=== PATIENT | male | born 1970 | race Caucasian/White ===

== ENCOUNTER 2024-03-03 08:02 | Emergency (ER) | payer OTHER, SELFPAY ==
--- NOTE | ~2024-03-03 | US_ITS ---
EXAMINATION: US venous doppler [facility] DATE: 03/03/2024 08:40 INDICATION: Left lower limb pain. TECHNIQUE: Grayscale ultrasound images without and with compression and Doppler ultrasound images of the left lower extremity veins were obtained. COMPARISON: None. FINDINGS: The visualized portions of left common femoral vein, profunda (deep) femoral vein, and greater saphen ous vein outflow are patent. There is deep vein thrombosis involving left femoral, popliteal, posteri or tibial, peroneal, and gastrocnemius veins. IMPRESSION: 1. Deep vein thrombosis involving left femoral, popliteal, posterior tibial, peroneal, and gastrocne mius veins. Reviewed, dictated and finalized at location A. IMPRESSION: 1. Deep vein thrombosis involving left femoral, popliteal, posterior tibial, p eroneal, and gastrocnemius veins.
[2024-03-03 08:08] VITALS: BP 142/105; PULSE 78; RESP 20; TEMP 36.7; O2SAT 96
--- NOTE | 2024-03-03 08:22 | ED.EXTPRO ---
HPI - Extremity Problem General Chief complaint: Extremity Problem,Nontraumatic Stated complaint: elevated D Dimer, wants US of L lower leg Time Seen by Provider: 03/03/24 08:15 Source: patient Mode of arrival: ambulatory Limitations: no limitations History of Present Illness HPI Narrative: Patient presents with left lower extremity calf pain. He had had his knee wrapped while he was working. He has a history of a torn ACL and cartilage damage and arthritis in this extremity that was operated on in October 2022 through [facility]. He did present to [facility] yesterday for this complaint of numbness. No history of DVT. He denies any shortness of breath or chest pain. Did have a workup at [facility] that would was notable for an elevated D-dimer and her ultrasound on the performed. They administered a shot of Lovenox and was advised to follow up for the ultrasound study. Related Data Allergies Allergy/AdvReac Type Severity Reaction Status Date / Time No Known Allergies Allergy Mild Verified 03/03/24 08:12 [facility] Past Medical History Medical History Arthritis Left knee Torn ACL Left Surgical History Surgical History H/O left knee surgery October 2022, [place] Social History Social History Smoking status: Never smoker Alcohol intake: current Exam Narrative: GENERAL: Well-appearing, well-nourished, and in no acute distress. HEAD: Normocephalic, atraumatic. EYES: Non injected, non icteric ENT: Nares clear, no rhinorrhea or epistaxis. NECK: Supple. CHEST: Speaking in full sentences. No respiratory distress. HEART: Regular rate and rhythm. . ABDOMEN: Soft, nondistended. EXTREMITIES: Normal range of motion. Mild swelling in left lower extremity, no pitting edema. Five of 5 strength with left ankle dorsiflexion plantar flexion. SKIN: Warm, dry, no rash. NEURO: No focal deficits. Alert and oriented x3. Sensation intact to gross touch throughout left leg. PSYCH: Normal mood and affect. Course Vital Signs Vital signs: Vital Signs Temperature 98.1 F 03/03/24 08:08 Pulse Rate 78 03/03/24 08:08 Respiratory Rate 20 03/03/24 08:08 Blood Pressure 142/105 H 03/03/24 08:08 Pulse Oximetry 96 03/03/24 08:08 Oxygen Delivery Room Air 03/03/24 08:08 Temperature 98.1 F 03/03/24 08:08 Pulse Rate 78 03/03/24 08:08 Respiratory Rate 20 03/03/24 08:08 Blood Pressure 142/105 H 03/03/24 08:08 Pulse Oximetry 96 03/03/24 08:08 Oxygen Delivery Room Air 03/03/24 08:08 MDM - Extremity (Nontraumatic) MDM Narrative Medical decision making narrative: Patient presents requesting ultrasound to rule out DVT in left lower extremity. He presented to [facility] for concerns of swelling and numbness in the extremity yesterday and had a workup that included an elevated D-dimer however ultrasound was unable to be performed at that time. He received a shot of Lovenox and was advised to follow-up which is what he was doing today. In the emergency department he is afebrile with vital signs notable for an elevated diastolic blood pressure. Patient is found to have DVT throughout many vessels of lower extremity. Normal renal function. He had been prescribed Eliquis empirically from [facility] and has the written prescription with him. We have compounds for rivaroxaban so this is a medication that is initially given and he is prescribed a 30 day course and provided the coupon. Advised he can take either advised he is to avoid NSAIDs. He is given strict ED return precautions. Patient has primary care physician for follow-up and refills. Discharged home in stable condition. Differential Diagnosis Differential diagnosis: Likely superficial thrombophlebitis and deep vein thrombosis of lower extremity Lab Data Attestation: I reviewed the patient's lab results. 03/03/24 09:11 03/03/24 09:1
[2024-03-03 09:16] LABS: Basophils Absolute Auto 0.1 K/mm3 (0.0-0.1); Basophils Percent Auto 0.6 % (0.2-1.2); Eosinophils Absolute Auto 0.3 K/mm3 (0-0.3); Eosinophils Percent Auto 3.7 % (0-4.4); Hematocrit 43.5 % (42.0-52.0); Hemoglobin 15.4 g/dL (14.0-18.0); Immature Granulocyte Absolute 0.03 K/mm3 (0.00-0.031); Immature Granulocyte Percent A 0.4 % (0-0.5); Lymphocytes Absolute Auto 1.23 K/mm3 (0.9-3.2); Lymphocytes Percent Auto 15.2 % (18.3-44.2); Mean Corpuscular HGB Conc 35.4 g/dl (32-36); Mean Corpuscular Volume 90.2 fl (80-100); Mean Platelet Volume 9.6 fl (7.4-10.4); Monocytes Absolute Auto 0.6 K/mm3 (0.1-0.6); Monocytes Percent Auto 7.9 % (2.6-8.5); Neutrophils Absolute Auto 5.9 K/mm3 (1.3-6.7); Neutrophils Percent Auto 72.2 % (45.5-73.1); Platelet Count Result 167 k/mm3 (150-375); Red Blood Count 4.82 M/mm3 (4.6-6.20); White Blood Count 8.1 K/mm3 (4.5-10.0)
[2024-03-03 09:27] LABS: Partial Thromboplastin Time 27.8 Seconds (22.3-36.8)
[2024-03-03 09:39] LABS: Anion Gap 10 mmol/L (4-12); Blood Urea Nitrogen 15 mg/dL (9-20); Calcium 8.7 mg/dL (8.4-10.2); Carbon Dioxide 27 mmol/L (22-30); Chloride 98 mmol/L (98-107); Estimated CRCL calculation 139 ml/min; Estimated Glomerular Filt Rate > 60; Glucose 104 mg/dL (65-110); Potassium 3.6 mmol/L (3.4-5.0); Sodium 135 mmol/L (137-145)
[2024-03-03] MEDS: RIVAROXABAN 15 MG TABLET PO (10:25)
[2024-03-03] MEDS: ACETAMINOPHEN 500 MG TABLET 1000 MG PO (10:30)
[2024-03-03 10:35] VITALS: BP 150/108; PULSE 78; RESP 16; O2SAT 98
== END 2024-03-03 10:35 | disposition home or self-care (01) ==
PROVIDERS: Emergency Provider Student in an Organized Health Care Education/Training Program; PCP Internal Medicine Infectious Disease
DX: I82.412 Acute embolism and thrombosis of left femoral vein (principal); I82.442 Acute embolism and thrombosis of left tibial vein; I82.432 Acute embolism and thrombosis of left popliteal vein; I82.452 Acute embolism and thrombosis of left peroneal vein; I82.462 Acute embolism and thrombosis of left calf muscular vein; M17.12 Unilateral primary osteoarthritis, left knee
CPT/HCPCS: 36415; 80048; 85025; 85610; 85730; 93971; 99284; A9270

== ENCOUNTER 2024-06-21 02:09 | Day surgery (SDC) | payer OTHER, SELFPAY ==
[2024-06-04 13:28] VITALS: BMI 34.9
--- NOTE | 2024-06-17 10:13 | PC.NURSE ---
Spoke with patient regarding medication Pt. JAYASHREE verbalizes understanding that the last dose is to be taken on 06/18/2024 and the Endoscopist will instruct them when to restart after the procedure.
[2024-06-21 13:10] VITALS: BP 143/102; PULSE 89; RESP 20; TEMP 36.1; O2SAT 98; BMI 34.2
[2024-06-21] MEDS: LACTATED RINGERS 1,000 ML 150 ML IV CONT (13:18)
--- NOTE | 2024-06-21 13:28 | P.PNAN_ITS ---
Anes - Initial Pre Proc Eval Procedure: Operation Date: 06/21/24 14:30 Proposed Procedures p Screening Colonoscopy - Chuy Odell MD Date/Time: 06/21/24 13:28 Surgeon: Chuy Odell MD Pre Op Diagnosis: neoplasm screening Patient Data Age: 53 Gender: M Height: 1.85 m Weight: 117.8 kg Last Vital Signs Temp 96.9 F L 06/21/24 13:10 Pulse 89 06/21/24 13:10 Resp 20 06/21/24 13:10 BP 143/102 H 06/21/24 13:10 Pulse Ox 98 06/21/24 13:10 O2 Del Method Room Air 06/21/24 13:10 Allergies Allergy/AdvReac Type Severity Reaction Status Date / Time No Known Allergies Allergy Mild Verified 06/21/24 13:08 Home Medications Medication Instructions Recorded Confirmed Type acetaminophen 500 mg capsule 1,000 mg PO Q6H PRN pain #20 caps 03/03/24 06/21/24 Rx rivaroxaban 15 mg (42)-20 mg (9) See Rx Instructions PO .COMPLEX 03/03/24 06/21/24 Rx tablets in a starter pack (Xarelto #51 ea DVT-PE Treatment 30-Day Starter) hydrochlorothiazide 25 mg tablet 25 mg PO DAILY 06/04/24 06/21/24 History losartan 25 mg tablet 25 mg PO HS 06/04/24 06/21/24 History rosuvastatin 20 mg tablet 20 mg PO DAILY 06/04/24 06/21/24 History tadalafil 20 mg tablet 20 mg PO PRN PRN Sexual Activity 06/04/24 06/21/24 History Patient hx anesthesia problems: none Family hx anesthesia problems: none Results Review: All pre-operative results and documents have been reviewed as part of the pre- operative evaluation. [facility] Past Medical History Medical History Arthritis Left knee Torn ACL Left Surgical History Surgical History H/O left knee surgery October 2022, [place] Social History Social History Smoking status: Never smoker Alcohol intake: current Drinks per week: 30 Substance use type: marijuana Other substance usage details: 2 x week Living arrangements: with friend(s) Spiritual care concerns: No Anes - Eval Final PreProcedure Day of Procedure 06/21/24 13:28 Patient weight: obese Heart: regular rate and rhythm Lungs: clear to auscultation Airway: Mallampati scale class II Neurological: alert and oriented Last oral intake: >/= 8 hours ASA classification: III Emergent: no Anesthetic plan: proceed Anesthesia type and monitoring: general GIVS and standard monitoring Results Review: All pre-operative results and documents have been reviewed as part of the pre- operative evaluation. Informed Consent: The patient's anesthetic plan and its attendant risks and benefits were discussed with the patient/family/POA. Questions were solicited and answers provided to the satisfaction of the patient/family/POA.
--- NOTE | 2024-06-21 13:42 | P.HP_ITS ---
History of Present Illness History of Present Illness Consent: Risks, benefits, and alternatives have been discussed and questions answered. Patient agrees to proceed with procedure. Chief complaint: neoplasm screening Narrative: Onel Moeller is a 53 year old male here for first screening colonoscopy Review of Systems Review of Systems: All systems reviewed & are unremarkable except as noted in HPI and below PMFSH Past Medical History Medical History (Updated 06/21/24 @ 13:43 by Chuy Odell MD) Arthritis Left knee Colon cancer screening Torn ACL Left Surgical History Surgical History H/O left knee surgery October 2022, [place] Social History Social History Smoking status: Never smoker Alcohol intake: current Drinks per week: 30 Substance use type: marijuana Other substance usage details: 2 x week Living arrangements: with friend(s) Spiritual care concerns: No Meds Home Medications and Allergies Home Medications Medication Instructions Recorded Confirmed Type acetaminophen 500 mg capsule 1,000 mg PO Q6H PRN pain #20 caps 03/03/24 06/21/24 Rx rivaroxaban 15 mg (42)-20 mg (9) See Rx Instructions PO .COMPLEX 03/03/24 06/21/24 Rx tablets in a starter pack (Xarelto #51 ea DVT-PE Treatment 30-Day Starter) hydrochlorothiazide 25 mg tablet 25 mg PO DAILY 06/04/24 06/21/24 History losartan 25 mg tablet 25 mg PO HS 06/04/24 06/21/24 History rosuvastatin 20 mg tablet 20 mg PO DAILY 06/04/24 06/21/24 History tadalafil 20 mg tablet 20 mg PO PRN PRN Sexual Activity 06/04/24 06/21/24 History Allergies Allergy/AdvReac Type Severity Reaction Status Date / Time No Known Allergies Allergy Mild Verified 06/21/24 13:08 Vital Signs Vital Signs - 24 hr 06/21/24 13:10 Temperature 96.9 F L Pulse Rate 89 Respiratory Rate 20 Blood Pressure 143/102 H Pulse Oximetry 98 Oxygen Delivery Room Air Exam Const: General: comfortable and no acute distress HENMT: Face/Nose/Sinus: Normal nares present Eyes: General: appearance normal, both eyes and all related structures Neck: Neck: no JVD Resp: Auscultation: clear to auscultation bilaterally Cardio: Rate: regular rate Rhythm: regular rhythm GI: Inspection: non-distended GI Palp: Yes Soft to palpation Skin: General skin exam: normal color Neuro: General: gait normal Speech: normal speech Extrem: General: normal to inspection Psych: Mental Status: mental status grossly normal Assessment and Plan Assessment and plan (1) Colon cancer screening: Code(s): Z12.11 - Encounter for screening for malignant neoplasm of colon Status: Acute Assessment and Plan: colonoscopy
[2024-06-21 14:04] VITALS: BP 118/87; PULSE 76; RESP 17; O2SAT 96
[2024-06-21 14:14] VITALS: BP 124/61; PULSE 78; RESP 20; O2SAT 94
[2024-06-21 14:24] VITALS: BP 133/84; PULSE 72; RESP 20; O2SAT 95
== END 2024-06-21 14:35 | disposition home or self-care (01) ==
PROVIDERS: PCP Internal Medicine Infectious Disease; Visit Provider Internal Medicine Gastroenterology
PROC: 0DJD8ZZ Inspection of Lower Intestinal Tract, Via Natural or Artificial Opening Endoscopic (ICD-10-PCS; CPT 45378; principal; 2024-06-21 14:30)
DX: Z12.11 Encounter for screening for malignant neoplasm of colon (principal); D12.0 Benign neoplasm of cecum; D12.2 Benign neoplasm of ascending colon; M17.12 Unilateral primary osteoarthritis, left knee; F12.90 Cannabis use, unspecified, uncomplicated; E66.9 Obesity, unspecified; Z68.34 Body mass index [BMI] 34.0-34.9, adult; Z79.01 Long term (current) use of anticoagulants; Z98.890 Other specified postprocedural states
CPT/HCPCS: 45385; 88305; J2003; J2704; J7120